=== PATIENT | male | born 1980 | race Caucasian/White ===

== ENCOUNTER 2022-12-02 08:17 | Outpatient (CLI) | payer OTHER, SELFPAY | END 2022-12-02 08:18 | disposition home or self-care (01) | PROVIDERS: PCP Family Medicine; Visit Provider Family Medicine | DX: Z12.5 Encounter for screening for malignant neoplasm of prostate (principal); Z13.6 Encounter for screening for cardiovascular disorders | CPT/HCPCS: 80053; 80061; 84153 ==

== ENCOUNTER 2024-04-13 11:30 | Emergency (ER) | payer OTHER, SELFPAY ==
[2024-04-13] VITALS (10 sets, daily range): BP systolic 135–141; BP diastolic 94–97; PULSE 57–70; RESP 16; TEMP 36.6; O2SAT 97–100; BMI 30.5
--- NOTE | 2024-04-13 11:51 | CRLHL7_ITS ---
For Patients: As a result of the Century Cures Act, medical imaging exams and procedure reports are released immediately into your electronic medical record. You may view this report before your referring provider. If you have questions, please contact your health care provider. INDICATION: Chest pain, shortness of breath COMPARISON: None. TECHNIQUE: PA and lateral 2 view chest. FINDINGS: Lung volumes are good. No focal or diffuse opacities. No pulmonary edema. No pleural effusion. No pneumothorax. No pneumomediastinum. Normal cardiomediastinal silhouette. Bones: Normal for age. IMPRESSION: Normal chest radiographs. Dictated by Chrissy Reid MD @ 04/13/2024 12:11:14 PM (Electronically Signed)
[2024-04-13 12:12] LABS: Basophils Absolute Auto 0.05 K/uL (0.00-0.30); Basophils Percent Auto 0.7 % (0.0-3.0); Eosinophils Absolute Auto 0.16 K/uL (0.00-0.50); Eosinophils Percent Auto 2.2 % (0.0-7.0); Hematocrit 42.9 % (37.0-53.0); Hemoglobin* 14.6 gm/dL (13.5-17.5); Immature Granulocytes Abs Auto 0.01 K/uL (0.00-0.30); Immature Granulocytes Pct Auto 0.1 %; Lymphocytes Absolute Auto 1.76 K/uL (0.90-2.90); Mean Corpuscular HGB Conc 34 gm/dL (32-36); Mean Corpuscular Hemoglobin 31 pg (26-34); Mean Corpuscular Volume 90 fL (80-100); Monocytes Percent Auto 6.9 % (0.0-11.0); Neutrophils Absolute Auto 4.85 K/uL (1.7-7.0); Neutrophils Percent Auto 66.1 % (42.0-72.0); Platelet Count* 196 K/uL (140-440); Red Blood Count 4.79 m/uL (4.30-5.90); White Blood Count* 7.34 K/uL (4.50-11.00)
--- NOTE | 2024-04-13 12:26 | ED_ITS ---
HPI - Chest Pain General Date Seen: 04/13/24 Chief Complaint: Chest Pain Stated Complaint: dizziness, chest pain Time Seen by Provider: 04/13/24 11:36 Source: patient Mode of arrival: ambulatory Limitations: no limitations History of Present Illness HPI narrative: Patient is a 43-year-old male presenting to the emergency department for episodes of lightheadedness, dizziness, shortness of breath. He states he 1st leave the final felt this symptoms last night after a volleyball game. Seems to come and go and returned again today. Is not currently having any chest pain or shortness of breath. States the lightheadedness is very mild at this time. Is also having some very mild nausea. Was concerned because he had a brother who at the age of 19 from sudden cardiac . Patient states he was thoroughly evaluated several years ago for multiple issues in the not find any abnormalities of his heart. And he last saw a cryptographic clerk 5 years ago for frequent PVCs and again no concerning findings were seen. He was concerned because of the family history so came in to be evaluated. Describes feeling lightheaded occasionally with chest discomfort midsternal a that is Jacqueline brought the nature but has improved significantly. Is unsure if the shortness of breath was due to anxiety or not. Denies headache, vision changes, dizziness weakness, numbness, diarrhea, constipation. Denies history of blood clots, hemoptysis, recent surgery or trauma, hormone use, lower extremity swelling. No other concerns noted Related Data Home Medications ?Medication ?Instructions ?Recorded ?Confirmed No Known Home Medications 04/13/24 04/13/24 Allergies Allergy/AdvReac Type Severity Reaction Status Date / Time Penicillins Allergy Severe Anaphylaxis Verified 04/13/24 11:41 Review of Systems Status of ROS Reports: 10 or more systems reviewed and unremarkable except as noted in History and below PFSH PFS Social History Smoking Status: Current some day smoker What tobacco products do you use: cigars How often do you have a drink containing alcohol: 2-3 times a week How many standard drinks containing alcohol do you have on a typical day: 1 or 2 AUDIT-C Alcohol total score: 3 Non-prescribed substance use: marijuana (any form) Exam Narrative Exam Narrative: Const: Well-nourished, Well-developed, in mild distress Eyes: PERRL, no conjunctival injection, and symmetrical lids HENT: Atraumatic external nose and ears. Moist mucous membranes. Neck: Symmetric, trachea midline, No thyromegaly. CVS: RRR, No murmurs or gallops. Peripheral pulses 2+ and equal in all extremities RESP: Unlabored respiratory effort. Clear to auscultation bilaterally. GI: Nontender/Nondistended, No rebound or guarding. MSK:Extremities w/o deformity, Normal Active ROM Skin: Warm, Dry. No rashes or lesions. Neuro: Normal Muscle tone, No focal neurological deficits. Psych: Awake, Alert, & Oriented x3. Appropriate mood and affect. Const Vital Signs, click to edit/add: Vital Signs - 24 hr 04/13/24 11:38 04/13/24 11:44 04/13/24 11:45 Temperature 97.9 F Pulse Rate 67 70 Pulse Rate [Pulse Oximeter] 65 Respiratory Rate 16 Blood Pressure [Right Upper Arm] 141/97 H Pulse Oximetry 99 97 99 Oxygen Delivery Method Room Air 04/13/24 12:03 04/13/24 12:15 04/13/24 12:30 Temperature Pulse Rate 63 64 67 Pulse Rate [Pulse Oximeter] Respiratory Rate Blood Pressure [Right Upper Arm] Pulse Oximetry 98 99 99 Oxygen Delivery Method Course Vital Signs Vital signs: Initial Vital Signs Temperature 97.9 F 04/13/24 11:38 Temperature Source Temporal Artery Scan 04/13/24 11:38 Pulse Rate 65 04/13/24 11:38 Respiratory Rate 16 04/13/24 11:38 Blood Pressure 141/97 H 04/13/24 11:38 Blood Pressure Mean 111 H 04/13/24 11:38 Blood Pressure Position Supine 04/13/24 11:38 Pulse Oximetry 99 04/13/24 11:38 Oxygen Delivery Method Room Air 04/13/24 11:38 Vital Signs Temperature 97.9 F 04/13/24 11:38 Pulse Rate 65 04/13/24 11:38 Respiratory Rate 16 04/13/24 11:38 Blood Pressure 141/97 H 04/13/24 11:38 Pulse Oximetry 99 04/13/24 11:38 Oxygen Delivery Method Room Air 04/13/24 11:38 Temperature 97.9 F 04/13/24 11:38 Pulse Rate 67 04/13/24 12:30 Respiratory Rate 16 04/13/24 11:38 Blood Pressure 141/97 H 04/13/24 11:38 Pulse Oximetry 99 04/13/24 12:30 Oxygen Delivery Method Room Air 04/13/24 11:38 MDM - Chest Pain MDM Narrative Medical decision making narrative: Patient is a 43-year-old male presenting for chest pain. The differential diagnosis of chest pain is broad and includes common etiologies such as musculoskeletal strain, GERD, pneumonia, etc. More serious etiologies considered include PE, coronary artery disease, pneumothorax, aortic dissection, aortic aneurysm. Will do chest x-ray to look for signs of pneumonia or pneumothorax. PERC negative so PE is unlikely. Will do an EKG to look for signs of ACS, Brugada, long QT syndrome. Troponin also ordered. This otherwise stable appearance aortic dissection and aortic aneurysm seem less likely. EKG reviewed myself shows no concerning abnormalities. Troponin is within normal limits. D-dimer within normal limits. CBC and CMP showed no concerning abnormalities. Viral swabs are negative. Chest x-ray reviewed by myself and the radiologist shows no concerning findings. At this time and not see acute concerning issues. Concerned symptoms started yesterday do not believe repeat troponin is necessary. I believe he is safe for discharge to him and his are agreeable to this plan. Lab Data Labs: Lab Results 04/13/24 04/13/24 Range/Units 12:04 12:06 WBC 7.34 (4.50-11.00) K/uL RBC 4.79 (4.30-5.90) m/uL Hgb 14.6 (13.5-17.5) gm/dL Hct 42.9 (37.0-53.0) % MCV 90 (80-100) fL MCH 31 (26-34) pg MCHC 34 (32-36) gm/dL RDW Coeff of Arnulfo 13.0 (11.5-15.5) % Plt Count 196 (140-440) K/uL Neut % (Auto) 66.1 (42.0-72.0) % Lymph % (Auto) 24.0 (20-44) % Estill % (Auto) 6.9 (0.0-11.0) % Eos % (Auto) 2.2 (0.0-7.0) % Baso % (Auto) 0.7 (0.0-3.0) % Neut # (Auto) 4.85 (1.7-7.0) K/uL Lymph # (Auto) 1.76 (0.90-2.90) K/uL Estill # (Auto) 0.50 (0.00-0.90) K/UL Eos # (Auto) 0.16 (0.00-0.50) K/uL Baso # (Auto) 0.05 (0.00-0.30) K/uL Abs Immat Gran (auto) 0.01 (0.00-0.30) K/uL Imm/Tot Granulo (auto) 0.1 % Sodium 139 (135-149) mmol/L Potassium 4.2 (3.6-5.1) mmol/L Chloride 106 (96-114) mmol/L Carbon Dioxide 25 (20-32) mmol/L Anion Gap 8 (7-15) mEq/L BUN 12 (5-24) mg/dL Creatinine 0.8 (0.5-1.5) mg/dL Estimated Creat Clear 133.38 Estimated GFR 114 ml/min Glucose 91 (60-115) mg/dL Calcium 9.1 (8.4-10.6) mg/dL Magnesium 2.3 (1.5-2.6) mg/dL Troponin I < 0.01 L (0.01-0.04) ng/mL SARS-CoV-2 (PCR) Negative SARS-CoV-2 (Negative) Influenza Type A (PCR) Negative PCR FLU A (Negative) Influenza Type B (PCR) Negative PCR FLU B (Negative) Imaging Data Chest x-ray: Attestation: I have reviewed the pertinent imaging results. Radiologist's impression: Normal chest radiographs. Dictated by Chrissy Reid MD @ 04/13/2024 12:11:14 PM ECG Data Attestation: I personally reviewed and interpreted this ECG as follows: Prior ECG tracings: not available for review Interpretation: Normal sinus rhythm with a rate of 62 beats per minute, normal intervals, normal axis, no ST or T-wave abnormalities. Discharge Plan Discharge Clinical Impression: Atypical chest pain, Episodic lightheadedness Patient Disposition: Home, Self-Care Condition: Stable Instructions: Lightheadedness (ED), Noncardiac Chest Pain (ED) Additional Instructions: I do not see any acute emergent issues on my workup. Cannot say for certain what is causing her symptoms but you should Follow-up with your primary care provider. Return for new worsening symptoms. Prescriptions: No Action No Known Home Medications Follow Up/Referrals: Provider,Not a Local [Primary Care Provider] - Stand Alone Forms: [email or web address] Info Instructions
[2024-04-13 12:31] LABS: Chloride* 106 mmol/L (96-114); Potassium* 4.2 mmol/L (3.6-5.1); Sodium* 139 mmol/L (135-149)
[2024-04-13 12:33] LABS: Slide Review Reflex No
[2024-04-13 12:34] LABS: Anion Gap 8 mEq/L (7-15); Blood Urea Nitrogen* 12 mg/dL (5-24); Calcium* 9.1 mg/dL (8.4-10.6); Carbon Dioxide* 25 mmol/L (20-32); Creatinine* 0.8 mg/dL (0.5-1.5); Est. Creatinine Clearance* 133.38; Estimated Glomerular Filt Rate 114 ml/min; Glucose* 91 mg/dL (60-115); Magnesium* 2.3 mg/dL (1.5-2.6)
[2024-04-13 12:48] LABS: Troponin I* < 0.01 ng/mL (0.01-0.04)
[2024-04-13 12:50] LABS: PCR FLU A Negative PCR FLU A (Negative); PCR FLU B Negative PCR FLU B (Negative); SARS PCR* Negative SARS-CoV-2 (Negative)
--- OUTSIDE RECORDS SUMMARY | 2024-04-13 12:58 | XMS_ITS | Encounter Summary ---
Author Organization [facility] Address [address] [place] [id number] Care Team Providers Care Clinic Office Assistant Name Role Phone Cayden Nunez MD Primary Care Provider [phone] Cayden Nunez MD Unavailable [phone] Tony Deal MD Unavailable Encounter Details Date Type Department Care Team (Late st Contact Info) Description 08/06/2023 MyC Medical Advice [facility] [address] [place] [phone] [place] [address] [place] [phone] Social History Tobacco Use Types Packs/Day Years Used Date Smoking Tobacco: Never Smokeless Tobacco: Never Alcohol Use Standard Drinks/Week Comments Yes 5 (1 standard drink = 0.6 oz pur e alcohol) social PHQ-2 Answer Date Recorded PHQ-2 Score 0 01/04/2023 Adolescent Education Answer Date Record ed Getting School Help Needed Not on file 01/28 Sex and Gender Information Value Date Recorded Sex Assigned at Not on file Legal Sex Male 10:56 AM CDT Gender Identity Not on file Sexual Orientation Not on file documented as of this encounter Plan of Treatment Upcoming Encounters Date Type Department Care Team (Late st Contact Info) Description 04/13/2024 3:00 PM PODIATRIC ASSISTANT Therapy Visit [facility] [address] [facility] [address] [place] [phone] [place] [phone] [place] [address] documented as of this encounter Visit Diagnoses Not on filedocumented in this encounter Additional Health Concerns Assessment Noted Time PHQ-9 Depression Total Score: 0 10/03/19 21 2:07 PM CDT documented as of this encounter Care Teams Clinic Office Assistant Relationship Specialty Start Date End Date Cayden Nunez MD [address] [place] [address] PCP - General 02/22/17 Cayden Nunez MD [address] [place] [address] Assigned PCP 11/21/20 Tony Deal MD [address] [place] [id number] Assigned Neuroscience Provider 03/31/24 documented as of this encounter
--- OUTSIDE RECORDS SUMMARY | 2024-04-13 12:58 | XMS_ITS | Encounter Summary ---
Author Organization [facility] Address [address] [place] [address] Care Team Providers Care Diploma Maker Name Role Phone Cayden Nunez MD Primary Care Provider [phone] Cayden Nunez MD Unavailable [phone] Reason for Referral * Rehab Therapy Physical Therapy (Routine: Next available opening) - Pending Review Specialty Diagnoses / Procedures Referred By Contac t Referred To Contact Diagnoses Chronic midline low back pain without sciatica Degeneration of intervertebral disc of lumbar region with discogenic back pain Tony Deal MD [address] [place] [id number] Phone: tel: fax: Referral ID Status Reason Start Date Expiration Date V isits Requested Visits Authorized [id number] Pending Review 03/13/2024 03/13/2025 1 1 Question Answer Course of Action: Evaluation and Treatment Specialty Services: [facility] Patient Scheduling Instructions: [facility] will call you to coordinate your care as prescribed by your provider. If you don't hear from a financial services representative within 2 business days, please call . Comments Please be aware that coverage of these services is subject to the terms and limitations of your health insurance plan. Call member services at your health plan with any benefit or coverage questions. [facility] will call you to coordinate your care as prescribed by your provider. If you don't hear from a financial services representative within 2 business days, please call . Y LEVEL STAFF ACCOUNTANT Reason for Visit * Reason Comments Back Pain lumbar * Consultation (Routine: Next available opening) - Pending Review Specialty Diagnoses / Procedures Referred By Contac t Referred To Contact Diagnoses Acute low back pain, unspecified back pain laterality, unspecified whether sciatica present Chronic midline low back pain without sciatica Cayden Nunez MD [facility] [place] [address] Phone: tel: fax: Referral ID Status Reason Start Date Expiration Date V isits Requested Visits Authorized [id number] Pending Review 02/08/2024 02/07/2025 1 1 Encounter Details Date Type Department Care Team (Late st Contact Info) Description 03/13/2024 11:00 AM ENTRY LEVEL STAFF ACCOUNTANT Office Visit [facility] Spine and Neurosurgery [address] [place] [phone] Cayden Nunez MD [address] [place] [phone] Tony Deal MD [address] [place] [address] [phone] Degeneration of intervertebral disc of lumbar region with discogenic back pain (Primary Dx); Acute low back pain, unspecified back pain laterality, unspecified whether sciatica present; Chronic midline low back pain without sciatica Social History Tobacco Use Types Packs/Day Years Used Date Smoking Tobacco: Never Smokeless Tobacco: Never Tobacco Cessation:Counseling Given: Not Answered Alcohol Use Standard Drinks/Week Comments Yes 5 (1 standard drink = 0.6 oz pur e alcohol) social PHQ-2 Answer Date Recorded PHQ-2 Score 0 03/13/2024 Adolescent Education Answer Date Record ed Getting School Help Needed Not on file 01/28 Sex and Gender Information Value Date Recorded Sex Assigned at Not on file Legal Sex Male 10:56 AM CDT Gender Identity Not on file Sexual Orientation Not on file documented as of this encounter Last Filed Vital Signs Vital Sign Reading Time Taken Comments Blood Pressure 132/79 03/13/2024 10:50 AM ENTRY LEVEL STAFF ACCOUNTANT Pulse 71 03/13/2024 10:50 AM ENTRY LEVEL STAFF ACCOUNTANT Temperature - - Respiratory Rate - - Oxygen Saturation 98% 03/13/2024 10:50 AM ENTRY LEVEL STAFF ACCOUNTANT Inhaled Oxygen Concentration - - Weight 102.1 kg (225 lb) 03/13/2024 10:50 AM ENTRY LEVEL STAFF ACCOUNTANT Height 185.4 cm (6' 1) 03/13/2024 10:50 AM ENTRY LEVEL STAFF ACCOUNTANT Body Mass Index 29.69 03/13/2024 10:50 AM ENTRY LEVEL STAFF ACCOUNTANT documented in this encounter Patient Instructions * Patient Instructions* Tony Deal MD - 03/13/2024 11:00 AM ENTRY LEVEL STAFF ACCOUNTANT ~Spine Center Scheduling # . ~Please call our [facility] Spine Nurse Navigation # with any questions or concerns about your treatment plan, if symptoms worsen and you would like to be seen urgently, or if youhave problems controlling bladder and bowel function. ~For any future flareups or new symptoms, recommend follow-up in clinic or contact the nurse navigator line. ~Please note that any My Chart messages may take multiple days for a response due to the high volume of patients seen in clinic. Anything sent Tuesday night or after will be answered the following week when able. Physical Therapy: We have placed a referral for you to start physical therapy. You should be receiving a call within the next 2-4 business days to schedule your first session. If you do not hear from the PT clinic within a week please call our clinic for assistance. Physical therapy is one of the most safe and effective treatments available for spine-related pain.Consistency is the most important factor when it comes to physical therapy - your therapist will give you exercises and stretches that you can perform at home, often without any special equipment. You should try to do those exercises at least once a day as long as they do not worsen your pain. Yourtherapist is trained to identify when your symptoms are worsening, but if you feel any new symptomsof numbness, weakness, or loss of bladder/bowel control please inform your therapist or call our clinic. We will plan to follow up with you once your therapy visits are completed. Y LEVEL STAFF ACCOUNTANT documented in this encounter Progress Notes * Sanjeev Sosa MD - 03/13/2024 11:00 AM CST Images from the original note were not included. ASSESSMENT: Pastor Norris is a 43 year old male presents for consultation at the request of Cayden Nunez who presents today for new patient evaluation of : Diagnoses and all orders for this visit: Degeneration of intervertebral disc of lumbar region with discogenic back pain - Physical Therapy Economics Professor Referral; Future Acute low back pain, unspecified back pain laterality, unspecified whether sciatica present - Spine Economics Professor Referral Chronic midline low back pain without sciatica - Spine Economics Professor Referral - Physical Therapy Economics Professor Referral; Future Patient is neurologically intact on exam. No myelopathic or red flag symptoms. Patient presenting with right axial lower lumbar pain for about 4 months. Pain is aggravated by sitting for prolonged periods. Symptoms had initially improved with Medrol dose pack but recurred. He did PT focused on stretching with minimal response. His exam shows tight hamstrings, SLR is negative.No recent image of the spine. Of note, he has a hx of L5-S1 diskectomy 13 years ago with residual chronic subjective diminished sensation in the right lateral lower leg. Differential diagnosis include discogenic pain (most likely) without radicular symptoms and myofascial pain. Discussed he would benefit from a more structured PT program ([facility]) focusing on the core muscle, especially the back extensors and he is willing to try. Discussed about optimizing medication management yet he wants to avoid stronger or additional medications at this time. PLAN: Reviewed spine anatomy and disease process. Discussed diagnosis and treatment options with the patient today. A shared decision making model was used. The patient's values and choices were respected.The following represents what was discussed and decided upon by the provider and the patient. 1. DIAGNOSTIC TESTS No new imaging orders at this time. Would consider a lumbar MRI with contrast (hx back surgery) if symptoms persist after PT. 2. PHYSICAL THERAPY Physical therapy was ordered through [facility] or the external clinic of patient's choice. [facility] therapy specified Discussed the importance of core strengthening, ROM, stretching exercises with the patient and how each of these entities is important in decreasing pain. Explained to the patient that the purpose ofphysical therapy is to teach the patient a home exercise program. These exercises need to be performed every day in order to decrease pain and prevent future occurrences of pain. Likened it to brushing one's teeth. 3. MEDICATIONS: Discussed multiple medication options today with patient. Discussed risks, side effects, and properuse of medications. Patient verbalized understanding. No new medications ordered at this visit. Patient advised to call our clinic's nurse navigation line (number provided) if they experience anyside effects or intolerances with prescribed medication. 4. INTERVENTIONS: Patient has not exhausted conservative measures yet, and we will follow up once conservative treatment has completed. 5. OTHER REFERRALS: No other referrals at this time. 6. FOLLOW-UP After completion of physical therapy. Patient advised to contact our office for earlier appointment if symptoms worsening or not improving, or any side effects are noticed. Advised patient to call the Spine Center if symptoms worsen or you have problems controlling bladder and bowel function. SUBJECTIVE: Pastor Norris is a 43 year old male who presents today for new patient evaluation due to low back pain for 4 months. Symptoms started in November, after he played softball. Did not have direct trauma to the spine. Located in the right lower lumbar region, does not radiate to the legs. Back in November the pain last for a few weeks and improved with Medrol dose pack and PT. Patient is now having similar symptoms for the past 1 month with no trauma. He is taking Medrol dose pack again with minimal response. He continues to do stretching exercises for the back and hamstrings. He is very active playing volleyball and softball regularly. Severity: 10/16 Laterality: right Radiation: no Worse with: Prolonged sitting Better with: Lying down Numbness: Chronic in the right lateral lower leg Weakness: no Prior back surgeries: hx of L5/S1 diskectomy 13 years ago -Treatment to Date: PT focusing on stretching and hamstring strengthening Oswestry (YULY) Questionnaire 11/29/2023 1:22 PM OSWESTRY DISABILITY INDEX Count 10 Sum 1 Oswestry Score (%) 2 % Neck Disability Index: No data to display -Medications: Current Outpatient Medications Medication Sig Dispense Refill cyclobenzaprine (FLEXERIL) 10 MG tablet Take 1 tablet (10 mg) by mouth 3 times daily as needed for muscle spasms. 30 tablet 4 diclofenac (VOLTAREN) 75 MG EC tablet Take 1 tablet (75 mg) by mouth 2 times daily as needed for moderate pain. (Patient not taking: Reported on 03/13/2024) 30 tablet 0 methylPREDNISolone (MEDROL DOSEPAK) 4 MG tablet therapy pack Follow Package Directions (Patient nottaking: Reported on 03/13/2024) 21 tablet 0 No current facility-administered medications for this visit. Allergies Allergen Reactions Penicillins shock Past Medical History: Diagnosis Date Asthma no symptoms since the Lumbar disc herniation PVC's (premature ventricular contractions) RBBB (right bundle branch block) Rotator cuff syndrome Patient Active Problem List Diagnosis PVC's (premature ventricular contractions) Chronic midline low back pain without sciatica Past Surgical History: Procedure Laterality Date APPENDECTOMY 05/09/1990 C ARTHROSCOPIC BANKART REPAIR Left 05/09/1997 DISCECTOMY LUMBAR MINIMALLY INVASIVE ONE LEVEL 05/09/2009 L5-S1 microdiscectomy Family History Problem Relation Age of Onset Depression Mother Diabetes Father Obesity Father Cardiovascular Brother 20 sudden cardiac , autopsy inconclusive No Known Problems Brother Glaucoma Maternal Grandmother Dementia Maternal Grandfather No Known Problems Son No Known Problems Son delayed speech, poor feeding (tub feedings) Cancer - colorectal No family hx of Prostate Cancer No family hx of Reviewed past medical, surgical, and family history with patient found on new patient intake packetlocated in EMR Media tab. SOCIAL HX: Reviewed ROS: Specifically negative for bowel/bladder dysfunction, balance changes, headache, dizziness, foot drop, fevers, chills, appetite changes, nausea/vomiting, unexplained weight loss. Otherwise 13 systems reviewed are negative. Please see the patient's intake questionnaire from today for details. OBJECTIVE: BP 132/79 (BP Location: Right arm, Patient Position: Sitting, Cuff Size: Adult Regular) Pulse 71 Ht 6' 1 (1.854 m) Wt 225 lb (102.1 kg) SpO2 98% BMI 29.69 kg/m?? PHYSICAL EXAMINATION: --CONSTITUTIONAL: Vital signs as above. No acute distress. The patient is well nourished and well groomed. --PSYCHIATRIC: The patient is awake, alert, oriented to person, place, time and answering questionsappropriately with clear speech. Appropriate mood and affect --RESPIRATORY: Normal rhythm and effort. No abnormal accessory muscle breathing patterns noted. --GROSS MOTOR: Easily arises from a seated position. --LUMBAR SPINE: Inspection reveals no evidence of deformity. Range of motion is not limited in flexion, extension, lateral rotation. Mild tenderness to palpation of right lower lumbar paraspinals, notenderness in spinous processes or SIJ. Facet loading (Lyons test) negative, SLR negative. --HIPS: Full range of motion bilaterally. Negative KARLA test. --LOWER EXTREMITY MOTOR TESTING: Hip flexion left 5/5, right 5/5 Knee extension left 5/5, right 5/5 Ankle dorsiflexors left 5/5, right 5/5 Ankle plantarflexors left 5/5, right 5/5 Great toe extension left 5/5, right 5/5 Knee flexion left 5/5, right 5/5 --NEUROLOGIC: Sensation to lower extremities is intact bilaterally in L2-S1 dermatomes. Reflexes intact in BLE, no clonus. --VASCULAR: Warm upper limbs bilaterally. Capillary refill in the upper extremities is less than 1 second. RESULTS: Available medical records from [facility] and any other outside records were reviewed today. Imaging: Available relevant imaging was personally reviewed and interpreted today. The images were shown to the patient and the findings were explained using a spine model. No results found. Cosigned by Tony Deal MD at 03/13/2024 1:08 PM ENTRY LEVEL STAFF ACCOUNTANT Y LEVEL STAFF ACCOUNTANT Associated attestation - Tony Deal MD - 03/13/2024 1:08 PM ENTRY LEVEL STAFF ACCOUNTANT Physician Attestation I, Tony Deal MD, saw and evaluated this patient and agree with the findings and plan of care as documented in the note. Any changes have been made above. Tony Deal MD [facility] documented in this encounter Plan of Treatment Upcoming Encounters Date Type Department Care Team (Late st Contact Info) Description 04/13/2024 3:00 PM ENTRY LEVEL STAFF ACCOUNTANT Therapy Visit [facility] [address] [address] [place] [id number] [place]uñ[place] [id number] [place] [address] Scheduled Referrals Name Type Priority Associated Diagnoses Orde r Schedule Physical Therapy Economics Professor Referral Referral Routine: Next available opening Chronic midline low back pain without sciatica Degeneration of intervertebral disc of lumbar region with discogenic back pain Expected: 03/13/2024 (Approximate), Expires: 03/13/2025 documented as of this encounter Visit Diagnoses Diagnosis Degeneration of intervertebral disc of lumbar region with discogenic back pain- Primary Acute low back pain, unspecified back pain laterality, unspecified whether sciatica present Chronic midline low back pain without sciatica documented in this encounter Additional Health Concerns Assessment Noted Time PHQ-9 Depression Total Score: 0 10/03/19 21 2:07 PM CDT documented as of this encounter Care Teams Diploma Maker Relationship Specialty Start Date End Date Cayden Nunez MD [address] [place] [address] PCP - General 02/22/17 Cayden Nunez MD [address] [place] [address] Assigned PCP 11/21/20 documented as of this encounter
--- OUTSIDE RECORDS SUMMARY | 2024-04-13 12:58 | XMS_ITS | Clinical Summary ---
Author Organization [facility] Address [address] [place] [address] Care Team Providers Care Sand Mixer Machine Name Role Phone Cayden Nunez MD Primary Care Provider [phone] Cayden Nunez MD Unavailable [phone] Tony Deal MD Unavailable Allergies Active Allergy Reactions Criticality Noted Date Comments Penicillins 03/07/2014 shock Medications methylPREDNISolo ne (MEDROL DOSEPAK) 4 MG tablet therapy packIndications: Acute low back pain, unspecified back pain laterality, unspecified whether sciatica present Follow Package Directions 21 tablet 4 Active Additional Information Patient not taking.Reported on 03/13/2024 cyclobenzaprine (FLEXERIL) 10 MG tabletIndication s:Chronic midline low back pain without sciatica Take 1 tablet (10 mg) by mouth 3 times daily as needed for muscle spasms. 30 tablet 4 4 Active diclofenac (VOLTAREN) 75 MG EC tabletIndication s:Acute low back pain, unspecified back pain laterality, unspecified whether sciatica present Take 1 tablet (75 mg) by mouth 2 times daily as needed for moderate pain. 30 tablet 4 Active Additional Information Patient not taking.Reported on 03/13/2024 Active Problems Problem Noted Date Diagnosed Date Chronic midline low back pain without sciatica 0 11/29/2023 PVC's (premature ventricular contractions) 04/20 Overview (11/07/2020): 04/06/2017 Holter 284 (0.3% heartbeats) associated with symptoms of palpitations Encounters Date Type Department Care Team Description 03/13/2024 11:00 AM ROUSTABOUT CREW Office Visit [facility] [address] [facility] [address] [place] [address] Cayden Nunez MD Joshi, Mihir, MD Degeneration of intervertebral disc of lumbar region with discogenic back pain (Primary Dx); Acute low back pain, unspecified back pain laterality, unspecified whether sciatica present; Chronic midline low back pain without sciatica 03/13/2024 Travel 02/07/2024 1:00 PM CDT E-Visit [address] [address] Cayden Nunez MD Back Pain (Entered automatically based on ... from Last 3 Months Immunizations Name Administration Dates Next Due Flu, Unspecified 02/16/2023,02/09/2019, 8 Influenza (IIV3) PF 02/20/2014 Influenza Vaccine >6 months,quad, PF 01/21/2021, 02/15/2019,02/08/2017 Influenza,INJ,MDCK,PF,Quad >6mo(Flucelvax) 02/19 TDAP (Adacel,Boostrix) 11/07/2011 Typhoid IM 05/05/2021 Yellow Fever 05/05/2021 Family History Medical History Relation Comments Cardiovascular Brother 1 sudden cardiac d eath, autopsy inconclusive No Known Problems Brother 2 Diabetes Father Obesity Father Dementia Maternal Grandfather Glaucoma Maternal Grandmother Depression Mother No Known Problems Son 1 No Known Problems Son 2 delayed speech , poor feeding (tub feedings) Cancer - colorectal No family hx of Prostate Cancer No family hx of Relation Status Comments Brother 1 Brother 2 Alive Father Alive Maternal Grandfather Maternal Grandmother Alive Mother Alive Paternal Grandfather Paternal Grandmother Son 1 Alive Son 2 Alive Social History Tobacco Use Types Packs/Day Years [...] on file Sexual Orientation Not on file Last Filed Vital Signs Vital Sign Reading Time Taken Comments Blood Pressure 132/79 03/13/2024 10:50 AM ROUSTABOUT CREW Pulse 71 03/13/2024 10:50 AM ROUSTABOUT CREW Temperature 36.6 C (97.9 F) 01/04/2023 11:46 AM CDT Respiratory Rate 20 01/04/2023 11:46 AM CDT Oxygen Saturation 98% 03/13/2024 10:50 AM ROUSTABOUT CREW Inhaled Oxygen Concentration - - Weight 102.1 kg (225 lb) 03/13/2024 10:50 AM ROUSTABOUT CREW Height 185.4 cm (6' 1) 03/13/2024 10:50 AM ROUSTABOUT CREW Body Mass Index 29.69 03/13/2024 10:50 AM ROUSTABOUT CREW Plan of Treatment Upcoming Encounters Date Type Department Care Team (Late st Contact Info) Description 04/13/2024 3:00 PM ROUSTABOUT CREW Therapy Visit [facility] [address] [facility] [address] [place] [phone] Freddy Zuñ[place] [address] [place] [address] Health Maintenance Due Date Last Done Comments ADVANCE CARE PLANNING 1982 HEPATITIS B IMMUNIZATION (1 of 3 - 19+ 3-dose series) 2001 ANNUAL REVIEW OF HM ORDERS 01/05/2024 01/04/2023, YEARLY PREVENTIVE VISIT 01/05/2024 01/05/20 23, 01/21/2021, 01/04/2019, Additional history exists GLUCOSE 04/17/2024 04/17/2021, 01/07, 03/07/2014 LIPID 01/21/2026 01/21/2021, 09/2018, 01/04/2019, Additional history exists DTAP/TDAP/TD IMMUNIZATION (3 - Td or Tdap) 02/03/2027 02/03/2017, 11/07/2011 RSV VACCINE (1 - 1-dose 75+ series) 2057 COVID-19 Vaccine Completed 03/03/2024, , 03/03/2021, Additional history exists INFLUENZA VACCINE Completed 03/03/2024, , 02/19/2022, Additional history exists PHQ-2 (once per calendar year) Completed 03/13/2024, 01/04/2023, 01/21/2021, Additional history exists HEPATITIS C SCREENING Discontinued HIV SCREENING Discontinued HPV IMMUNIZATION Aged Out No longer e ligible based on patient's age to complete this topic MENINGITIS IMMUNIZATION Aged Out No l onger eligible based on patient's age to complete this topic Pneumococcal Vaccine: Pediatrics (0 to 5 Years) and At-Risk Patients (6 to 64 Years) Aged Out No longer eligible based on patient's age to complete this topic RSV MONOCLONAL ANTIBODY Aged Out No l onger eligible based on patient's age to complete this topic Procedures Procedure Name Priority Date/Time Associated Diagnosis Comments COMPREHENSIVE METABOLIC PANEL Routine 04/17/2021 10:31 AM ROUSTABOUT CREW Abdominal pain, epigastric Abdominal bloating Early satiety LIPID REFLEX TO DIRECT LDL PANEL Routine 01/21/2021 12:32 PM CDT Mixed hyperlipidemia from Last 3 Months or Most Recently Relevant to Health Maintenance Results * Comprehensive metabolic panel (04/17/2021 10:31 AM ROUSTABOUT CREW) Sodium 139 133 - 144 mmol/L 04/20/2021 8:58 AM ROUSTABOUT CREW [facility] Potassium 4.3 3.4 - 5.3 mmol/L 04/20/2021 8:58 AM ROUSTABOUT CREW [facility] Chloride 109 94 - 109 mmol/L 04/20/2021 8:58 AM ROUSTABOUT CREW [facility] Carbon Dioxide (CO2) 25 20 - 32 mmol/L 04/20/2021 8:58 AM ROUSTABOUT CREW [facility] Anion Gap 5 3 - 14 mmol/L 04/20/2021 8:58 AM ROUSTABOUT CREW [facility] Urea Nitrogen 11 7 - 30 mg/dL 04/20/2021 8:58 AM ROUSTABOUT CREW [facility] Creatinine 0.85 0.66 - 1.25 mg/dL 04/20/2021 8:58 AM ROUSTABOUT CREW [facility] Calcium 8.6 8.5 - 10.1 mg/dL 04/20/2021 8:58 AM ROUSTABOUT CREW [facility] Glucose 81 70 - 99 mg/dL 04/20/2021 8:58 AM ROUSTABOUT CREW [facility] Alkaline Phosphatase 69 40 - 150 U/L 04/20/2021 8:58 AM ROUSTABOUT CREW [facility] AST 17 0 - 45 U/L 04/20/2021 8:58 AM ROUSTABOUT CREW [facility] ALT 33 0 - 70 U/L 04/20/2021 8:58 AM ROUSTABOUT CREW [facility] Protein Total 7.3 6.8 - 8.8 g/dL 04/20/2021 8:58 AM ROUSTABOUT CREW [facility] Albumin 3.6 3.4 - 5.0 g/dL 04/20/2021 8:58 AM ROUSTABOUT CREW [facility] Bilirubin Total 0.4 0.2 - 1.3 mg/dL 04/20/2021 8:58 AM ROUSTABOUT CREW [facility] GFR Estimate >90 >60 mL/min/1.7 3m2 04/20/2021 8:58 AM ROUSTABOUT CREW [facility] Comment:As of November 16, 2020, eGFR is calculated by the CKD-EPI creatinine equation, without race adjustment. eGFR can be influenced by muscle mass, exercise, and diet. The reported eGFR is an estimation only and is only applicable if the renal function is stable. Blood STRUCTURE OF RIGHT UPPER LIMB / Unknown Venipuncture / Unknown 04/17/2021 10:31 AM ROUSTABOUT CREW 04/17/2021 10:31 AM ROUSTABOUT CREW us Cayden Nunez MD LAB - BLOOD ORDERABLES Final R esult [facility] [address] Lab (no room number, 1st floor of clinic) [place] [address], [place] [phone] * (ABNORMAL) Lipid panel reflex to direct LDL Fasting (01/21/2021 12:32 PM CDT) Cholesterol 251(H) <=199 mg/dL 01/21/2021 6:43 PM CDT [facility] Triglycerides 120 <=149 mg/dL 01/21/2021 6:43 PM CDT [facility] Direct Measure HDL 43 >=40 mg/dL 01/21/2021 6:43 PM CDT [facility] Comment: HDL Cholesterol Reference Range: 0-2 years: No reference ranges established for patients under 2 years old at [facility] for lipid analytes. 2-8 years: Greater than 45 mg/dL 18 years and older: Female: Greater than or equal to 50 mg/dL Male: Greater than or equal to 40 mg/dL LDL Cholesterol Calculated 184(H) <=129 mg/dL 01/21/2021 6:43 PM CDT [facility] Patient Fasting > 8hrs? Yes 01/21/2021 6:43 PM CDT [facility] Blood STRUCTURE OF LEFT UPPER LIMB / Unknown Venipuncture / Unknown 01/21/2021 12:32 PM CDT 01/21/2021 12:32 PM CDT Cayden Nunez MD LAB - BLOOD ORDERABLES Final R esult Performing Organization Address City/State/[facility] Co de Phone Number [facility] [address] [id number] [phone] from Last 3 Months or Most Recently Relevant to Health [place] [address] [facility] CHOICE [address] [address] [facility] CHOICE Care Teams Sand Mixer Machine Relationship Specialty Start Date End Date Cayden Nunez MD [address] [place] [address] PCP - General 02/22/17 Cayden Nunez MD [address] [place] [address] Assigned PCP 11/21/20 Tony Deal MD [facility] [address] Assigned Neuroscience Provider 03/31/24
--- OUTSIDE RECORDS SUMMARY | 2024-04-13 12:58 | XMS_ITS | Referral Summary ---
Author Organization [facility] Address [address] [place] [address] Care Team Providers Care Drafter (Cad) Electronic Name Role Phone Cayden Nunez MD Primary Care Provider [phone] Cayden Nunez MD Unavailable [phone] Tony Deal MD Unavailable Encounters Date Type Department Care Team Description 03/13/2024 Travel 03/13/2024 11:00 AM AIR BRAKE OPERATOR Office Visit [facility] Spine and Neurosurgery [address] [place] [phone] Cayden Nunez MD Joshi, Mihir, MD Degeneration of intervertebral disc of lumbar region with discogenic back pain (Primary Dx); Acute low back pain, unspecified back pain laterality, unspecified whether sciatica present; Chronic midline low back pain without sciatica 02/07/2024 1:00 PM CDT E-Visit [address] [address] Cayden Nunez MD Back Pain (Entered automatically based on ... from Last 3 Months Allergies Active Allergy Reactions Criticality Noted Date Comments Penicillins 03/07/2014 shock Medications methylPREDNISolo ne (MEDROL DOSEPAK) 4 MG tablet therapy packIndications: Acute low back pain, unspecified back pain laterality, unspecified whether sciatica present Follow Package Directions 21 tablet Active Additional Information Patient not taking.Reported on 03/13/2024 cyclobenzaprine (FLEXERIL) 10 MG tabletIndication s:Chronic midline low back pain without sciatica Take 1 tablet (10 mg) by mouth 3 times daily as needed for muscle spasms. 30 tablet 4 Active diclofenac (VOLTAREN) 75 MG EC [...] (0.3% heartbeats) associated with symptoms of palpitations Immunizations Name Administration Dates Next Due Flu, Unspecified 02/16/2023,02/09/2019, 8 Influenza (IIV3) PF 02/20/2014 Influenza Vaccine >6 months,quad, PF 01/21/2021, 02/15/2019,02/08/2017 Influenza,INJ,MDCK,PF,Quad >6mo(Flucelvax) 02/19 TDAP (Adacel,Boostrix) 11/07/2011 Typhoid IM 05/05/2021 Yellow Fever 05/05/2021 Social History Tobacco Use Types Packs/Day Years [...] Comments Blood Pressure 132/79 03/13/2024 10:50 AM AIR BRAKE OPERATOR Pulse 71 03/13/2024 10:50 AM AIR BRAKE OPERATOR Temperature 36.6 C (97.9 F) 01/04/2023 11:46 AM CDT Respiratory Rate 20 01/04/2023 11:46 AM CDT Oxygen Saturation 98% 03/13/2024 10:50 AM AIR BRAKE OPERATOR Inhaled Oxygen Concentration - - Weight 102.1 kg (225 lb) 03/13/2024 10:50 AM AIR BRAKE OPERATOR Height 185.4 cm (6' 1) 03/13/2024 10:50 AM AIR BRAKE OPERATOR Body Mass Index 29.69 03/13/2024 10:50 AM AIR BRAKE OPERATOR Plan of Treatment Upcoming Encounters Date Type Department Care Team (Late st Contact Info) Description 04/13/2024 3:00 PM AIR BRAKE OPERATOR Therapy Visit [facility] [address] [facility] [address] [place] [phone] Freddy [place]uñ[place] [address] [address] [place] [address] Procedures Procedure Name Priority Date/Time Associated Diagnosis Comments COMPREHENSIVE METABOLIC PANEL Routine 04/17/2021 10:31 AM AIR BRAKE OPERATOR Abdominal pain, epigastric Abdominal bloating Early satiety LIPID REFLEX TO DIRECT LDL PANEL Routine 01/21/2021 12:32 PM CDT Mixed hyperlipidemia from Last 3 Months or Most Recently Relevant to Health Maintenance Results * Comprehensive metabolic panel (04/17/2021 10:31 AM AIR BRAKE OPERATOR) Sodium 139 133 - 144 mmol/L 04/20/2021 8:58 AM AIR BRAKE OPERATOR [facility] Potassium 4.3 3.4 - 5.3 mmol/L 04/20/2021 8:58 AM AIR BRAKE OPERATOR [facility] Chloride 109 94 - 109 mmol/L 04/20/2021 8:58 AM AIR BRAKE OPERATOR [facility] Carbon Dioxide (CO2) 25 20 - 32 mmol/L 04/20/2021 8:58 AM AIR BRAKE OPERATOR [facility] Anion Gap 5 3 - 14 mmol/L 04/20/2021 8:58 AM AIR BRAKE OPERATOR [facility] Urea Nitrogen 11 7 - 30 mg/dL 04/20/2021 8:58 AM AIR BRAKE OPERATOR [facility] Creatinine 0.85 0.66 - 1.25 mg/dL 04/20/2021 8:58 AM AIR BRAKE OPERATOR [facility] Calcium 8.6 8.5 - 10.1 mg/dL 04/20/2021 8:58 AM AIR BRAKE OPERATOR [facility] Glucose 81 70 - 99 mg/dL 04/20/2021 8:58 AM AIR BRAKE OPERATOR [facility] Alkaline Phosphatase 69 40 - 150 U/L 04/20/2021 8:58 AM AIR BRAKE OPERATOR [facility] AST 17 0 - 45 U/L 04/20/2021 8:58 AM AIR BRAKE OPERATOR [facility] ALT 33 0 - 70 U/L 04/20/2021 8:58 AM AIR BRAKE OPERATOR [facility] Protein Total 7.3 6.8 - 8.8 g/dL 04/20/2021 8:58 AM AIR BRAKE OPERATOR [facility] Albumin 3.6 3.4 - 5.0 g/dL 04/20/2021 8:58 AM AIR BRAKE OPERATOR [facility] Bilirubin Total 0.4 0.2 - 1.3 mg/dL 04/20/2021 8:58 AM AIR BRAKE OPERATOR [facility] GFR Estimate >90 >60 mL/min/1.7 3m2 04/20/2021 8:58 AM AIR BRAKE OPERATOR [facility] Comment:As of November 16, 2020, eGFR is calculated by the CKD-EPI creatinine equation, without race adjustment. eGFR can be influenced by muscle mass, exercise, and diet. The reported eGFR is an estimation only and is only applicable if the renal function is stable. Blood STRUCTURE OF RIGHT UPPER LIMB / Unknown Venipuncture / Unknown 04/17/2021 10:31 AM AIR BRAKE OPERATOR 04/17/2021 10:31 AM AIR BRAKE OPERATOR us Cayden Nunez MD LAB - BLOOD ORDERABLES Final R esult [facility] [address] Lab (no room number, 1st floor of clinic) [place] [address], [facility] [phone] * (ABNORMAL) Lipid panel reflex to direct LDL Fasting (01/21/2021 12:32 PM CDT) Cholesterol 251(H) <=199 mg/dL 01/21/2021 6:43 PM CDT [facility] Triglycerides 120 <=149 mg/dL 01/21/2021 6:43 PM CDT [facility] Direct Measure HDL 43 >=40 mg/dL 01/21/2021 6:43 PM CDT [facility] Comment: HDL Cholesterol Reference Range: 0-2 years: No reference ranges established for patients under 2 years old at [facility] for lipid analytes. 2-8 years: Greater [...] ORDERABLES Final R esult Performing Organization Address City/State/[facility] Co de Phone Number [facility] [address] [address] [phone] from Last 3 Months or Most Recently Relevant to Health Maintenance Insurance [facility] CHO[facility] [place] [id number] [facility] Care Teams Drafter (Cad) Electronic Relationship Specialty Start Date End Date Cayden Nunez MD [address] [place] [address] PCP - General 02/22/17 Cayden Nunez MD [address] [place] [address] Assigned PCP 11/21/20 Tony Deal MD [address] [place] [address] Assigned Neuroscience Provider 03/31/24
--- OUTSIDE RECORDS SUMMARY | 2024-04-13 12:58 | XMS_ITS | Encounter Summary ---
Author Organization [facility] Address [address] [place] [address] Care Team Providers Care Notch Grinder Name Role Phone Cayden Jerry MD Primary Care Provider [phone] Cayden Jerry MD Unavailable [phone] Reason for Referral * Consultation (Routine: Next available opening) - Pending Review Specialty Diagnoses / Procedures Referred By Contac t Referred To Contact Diagnoses Acute low back pain, unspecified back pain laterality, unspecified whether sciatica present Chronic midline low back pain without sciatica Cayden Jerry MD [address] [place] [address] Phone: tel: fax: Referral ID Status Reason Start Date Expiration Date V isits Requested Visits Authorized [id number] Pending Review 02/08/2024 02/07/2025 1 1 Question Answer Referral Type: Per Protocol Scheduling Instructions: [facility] will call you to coordinate your care as prescribed by your provider. If you don't hear from a players club representative within 2 business days, please call . Comments Please be aware that coverage of these services is subject to the terms and limitations of your health insurance plan. Call member services at your health plan with any benefit or coverage questions. [facility] will call you to coordinate your care as prescribed by your provider. If you don't hear from a players club representative within 2 business days, please call . Reason for Visit * Reason Onset Date Comments Back Pain Entered automati almita based on patient selection in [facility]. Back Pain 02/08/2024 Encounter Details Date Type Department Care Team (Late st Contact Info) Description 02/07/2024 1:00 PM CDT E-Visit [facility] [address] [place] [address] aCyden Jerry MD [address] [place] [address] Back Pain (Entered automatically based on ... Social History Tobacco Use Types Packs/Day Years [...] on file documented as of this encounter Patient Instructions * Patient Instructions* Cayden Jerry MD - 02/07/2024 1:00 PM CDT I have sent in diclofenac. This is a more potent NSAID than ibuprofen. If you use diclofenac, then do not use ibuprofen at the same time. You can use acetaminophen along with diclofenac. I sent in a Medrol Dosepak and muscle relaxant. I would like you to be seen in our spine clinic as a next step before an MRI. I placed a referral and someone should contact you to schedule documented in this encounter Miscellaneous Notes * Telephone Encounter - Cayden Jerry MD - 02/08/2024 9:48 AM CDT Provider E-Visit time total (minutes): 3 * Addendum Note - Cayden Jerry MD - 02/07/2024 1:00 PM CDTAddended by: CAYDEN JERRY on: 02/10/2024 02:02 PM Modules accepted: Orders documented in this encounter Plan of Treatment Upcoming Encounters Date Type Department Care Team (Late st Contact Info) Description 04/13/2024 3:00 PM CHIEF TECHNOLOGY OFFICER Therapy Visit [facility] [address] [facility] [address] [place] [address] Freddy Zuñ[place] [address] [place] [address] Scheduled Referrals Name Type Priority Associated Diagnoses Orde r Schedule Spine Main Line Station Engineer Referral Referral Routine: Next available opening Acute low back pain, unspecified back pain laterality, unspecified whether sciatica present Chronic midline low back pain without sciatica Expected: 02/08/2024 (Approximate), Expires: 02/07/2025 documented as of this encounter Visit Diagnoses Diagnosis Acute low back pain, unspecified back pain laterality, unspecified whether sciatica present Chronic midline low back pain without sciatica documented in this encounter Additional Health Concerns Assessment Noted Time PHQ-9 Depression Total Score: 0 10/03/19 21 2:07 PM CDT documented as of this encounter Care Teams Notch Grinder Relationship Specialty Start Date End Date Cayden Jerry MD [address] [place] [address] PCP - General 02/22/17 Cayden Jerry MD [address] [place] [address] Assigned PCP 11/21/20 documented as of this encounter
--- OUTSIDE RECORDS SUMMARY | 2024-04-13 12:58 | XMS_ITS | Encounter Summary ---
Author Organization [facility] Address [address] [place] [address] Care Team Providers Care Carrot Tier Name Role Phone Cayden Nunez MD Primary Care Provider [phone] Cayden Nunez MD Unavailable [phone] Tony Deal MD Unavailable Reason for Visit * Reason Onset Date Comments Appointment 06/27/2023 Encounter Details Date Type Department Care Team (Late st Contact Info) Description 06/27/2023 [facility] [address] 4th [place] [address] Unknown, Doctor, MD Appointment (/) Social History Tobacco Use Types Packs/Day Years [...] on file documented as of this encounter Miscellaneous Notes * Telephone Encounter - Jessy Pagan - 06/27/2023 4:51 PM [facility] Phone Message May a detailed message be left on voicemail: no Reason for Call: Appointment Intake Referring Provider Name: Laura Maher MD Diagnosis and/or Symptoms: R59.0 (ICD-10-CM) - Left cervical lymphadenopathy Sending to [facility] office per protocols Action Taken: Other: ENT Travel Screening: Not Applicable AINABILITY MANAGER documented in this encounter Plan of Treatment Upcoming Encounters Date Type Department Care Team (Late st Contact Info) Description 04/13/2024 3:00 PM SUSTAINABILITY MANAGER Therapy Visit [facility] [address] [facility] [address] [place] [address] Freddy Zuñ[place] [address] [place] [address] documented as of this encounter Visit Diagnoses Not on filedocumented in this encounter Additional Health Concerns Assessment Noted Time PHQ-9 Depression Total Score: 0 10/03/19 21 2:07 PM CDT documented as of this encounter Care Teams Carrot Tier Relationship Specialty Start Date End Date Cayden Nunez MD [address] [place] [address] PCP - General 02/22/17 [place] [address] [place] [address] Assigned PCP 11/21/20 Tony Deal MD [address] [address] Assigned Neuroscience Provider 03/31/24 documented as of this encounter
--- OUTSIDE RECORDS SUMMARY | 2024-04-13 12:58 | XMS_ITS | Encounter Summary ---
Author Organization [facility] Address [address] [place] [address] Care Team Providers Care Home Decorator Name Role Phone Cayden Nunez MD Primary Care Provider [phone] Cayden Nunez MD Unavailable [phone] Encounter Details Date Type Department Care Team (Latest Contact Info) Description 03/13/2024 Travel Social History Tobacco Use Types Packs/Day Years [...] st Contact Info) Description 04/13/2024 3:00 PM CPA TAX Therapy Visit [facility] [address] [facility] [address] [place] [phone] Freddy Zuñ[place] [address] [place] [address] documented as of this encounter Visit Diagnoses Not on filedocumented in this encounter Additional Health Concerns Assessment Noted Time PHQ-9 Depression Total Score: 0 10/03/19 21 2:07 PM CDT documented as of this encounter Care Teams Home Decorator Relationship Specialty Start Date End Date Cayden Nunez MD [address] [place] [address] PCP - General 02/22/17 Cayden Nunez MD [address] [place] [address] Assigned PCP 11/21/20 documented as of this encounter
--- OUTSIDE RECORDS SUMMARY | 2024-04-13 12:58 | XMS_ITS | Encounter Summary ---
Author Organization [employer] Address [address] [place] [address] Care Team Providers Care Seed Analysis Laboratory Assistant Name Role Phone Cayden Nunez MD Primary Care Provider [phone] Cayden Nunez MD Unavailable [phone] Tony Deal MD Unavailable Encounter Details Date Type Department Care Team (Late st Contact Info) Description 07/24/2023 MyC Medical Advice [facility] [address] [place] [phone] [place] [address] [place] [address] [phone] Social History Tobacco Use Types Packs/Day Years [...] st Contact Info) Description 04/13/2024 3:00 PM POLICE LIEUTENANT Therapy Visit [facility] [address] [facility] [address] [place] [phone] Freddy Zuñ[place] [address] [place] [address] documented as of this encounter Visit Diagnoses Not on filedocumented in this encounter Additional Health Concerns Assessment Noted Time PHQ-9 Depression Total Score: 0 10/03/19 21 2:07 PM CDT documented as of this encounter Care Teams Seed Analysis Laboratory Assistant Relationship Specialty Start Date End Date Cayden Nunez MD [address] [place] [address] PCP - General 02/22/17 Cayden Nunez MD [address] [place] [address] Assigned PCP 11/21/20 Tony Deal MD [address] [place] [address] Assigned Neuroscience Provider 03/31/24 documented as of this encounter
--- OUTSIDE RECORDS SUMMARY | 2024-04-13 12:59 | XMS_ITS | Encounter Summary ---
Author Organization [employer] Address [address] [place] [address] Care Team Providers Care Assistance Representative Name Role Phone Cayden Nunez MD Primary Care Provider [phone] Cayden Nunez MD Unavailable [phone] Tony Deal MD Unavailable Encounter Details Date Type Department Care Team (Late st Contact Info) Description 06/24/2023 MyC Medical Advice Initial Department Hamzah Menezes Social History Tobacco Use Types Packs/Day Years [...] st Contact Info) Description 04/13/2024 3:00 PM BILINGUAL SALES ASSISTANT Therapy Visit [facility] [address] [place] [address] Freddy Zuñ[place] [address] [place] [address] documented as of this encounter Visit Diagnoses Not on filedocumented in this encounter Additional Health Concerns Assessment Noted Time PHQ-9 Depression Total Score: 0 10/03/19 21 2:07 PM CDT documented as of this encounter Care Teams Assistance Representative Relationship Specialty Start Date End Date Cayden Nunez MD [address] [place] [address] PCP - General 02/22/17 Cayden Nunez MD [address] [place] [address] Assigned PCP 11/21/20 Tony Deal MD [address] [place] [address] Assigned Neuroscience Provider 03/31/24 documented as of this encounter
--- OUTSIDE RECORDS SUMMARY | 2024-04-13 12:59 | XMS_ITS | Encounter Summary ---
Author Organization [place] Address [address] [place] [address] Care Team Providers Care Tube Depatcher Name Role Phone Cayden Nunez MD Primary Care Provider [phone] Cayden Nunez MD Unavailable [phone] Tony Deal MD Unavailable Encounter Details Date Type Department Care Team (Late st Contact Info) Description 04/06/2023 MyC Medical Advice [facility] [address] [place] [phone] [place] [address] [place] [address] [phone] Social History Tobacco Use Types Packs/Day Years [...] st Contact Info) Description 04/13/2024 3:00 PM CURB ATTENDANT [facility] [address] [facility] [address] [place] [phone] Freddy Zuñ[place] [address] [place] [address] documented as of this encounter Visit Diagnoses Not on filedocumented in this encounter Additional Health Concerns Assessment Noted Time PHQ-9 Depression Total Score: 0 10/03/19 21 2:07 PM CDT documented as of this encounter Care Teams Tube Depatcher Relationship Specialty Start Date End Date Cayden Nunez MD [address]0 [place] [address] PCP - General 02/22/17 Cayden Nunez MD [address] [place] [address] Assigned PCP 11/21/20 Tony Deal MD [address] [place] [address] Assigned Neuroscience Provider 03/31/24 documented as of this encounter
--- OUTSIDE RECORDS SUMMARY | 2024-04-13 12:59 | XMS_ITS | Encounter Summary ---
Author Organization [place] Address [address] [place] [address] Care Team Providers Care Electronic Imaging System Operator Name Role Phone Cayden Nunez MD Primary Care Provider [phone] Cayden Nunez MD Unavailable [phone] Tony Deal MD Unavailable Encounter Details Date Type Department Care Team (Late st Contact Info) Description 12/26/2020 MyC Medical Advice [facility] [address] [place] [phone] Cayden Nunez MD [address] [place], [place] [phone] Social History Tobacco Use Types Packs/Day Years Used Date Smoking Tobacco: Never Smokeless Tobacco: Never Alcohol Use Standard Drinks/Week Comments Yes 8 (1 standard drink = 0.6 oz pur e alcohol) social PHQ-2 Answer Date Recorded PHQ-2 Score 0 09/11/2020 Sex and Gender Information Value Date Recorded Sex Assigned at Not on file Legal Sex Male 10:56 AM CDT Gender Identity Not on file Sexual Orientation Not on file documented as of this encounter Plan of Treatment Upcoming Encounters Date Type Department Care Team (Late st Contact Info) Description 04/13/2024 3:00 PM BUSINESS INTELLIGENCE ETL DEVELOPER Therapy Visit [facility] [address] [place] [phone] [place]uñ[place] [address] [place] [address] documented as of this encounter Visit Diagnoses Not on filedocumented in this encounter Additional Health Concerns Assessment Noted Time PHQ-9 Depression Total Score: 0 10/03/19 21 2:07 PM CDT documented as of this encounter Care Teams Electronic Imaging System Operator Relationship Specialty Start Date End Date Cayden Nunez MD [address] [place] [address] PCP - General 02/22/17 Cayden Nunez MD [address] [place] [address] Assigned PCP 11/21/20 Tony Deal MD [address] [place] [address] Assigned Neuroscience Provider 03/31/24 documented as of this encounter
--- OUTSIDE RECORDS SUMMARY | 2024-04-13 12:59 | XMS_ITS | Clinical Summary ---
Author Organization [facility] Address [place], [place] [address] Care Team Providers Care Behavior Clinician Name Role Phone Cayden Nunez MD Primary Care Provider [phone] Allergies Active Allergy Reactions Criticality Noted Date Comments Penicillins Anaphylaxis High 03/07/2014 shock Medications No known medications Social History Tobacco Use Types Packs/Day Years Used Date Smoking Tobacco: Never Smokeless Tobacco: Never Tobacco Cessation:Counseling Given: No Sex and Gender Information Value Date Recorded Sex Assigned at Not on file Gender Identity Not on file Sexual Orientation Not on file Obstetrics History Last Filed Vital Signs Vital Sign Reading Time Taken Comments Blood Pressure 143/92 01/25/2022 12:56 PM CDT Pulse 59 01/25/2022 12:56 PM CDT Temperature - - Respiratory Rate 16 01/25/2022 12:56 PM CDT Oxygen Saturation 99% 01/25/2022 12:56 PM CDT Inhaled Oxygen Concentration - - Weight - - Height - - Body Mass Index - - Plan of Treatment Health Maintenance Due Date Last Done Comments Tdap 1993 Depression screening for age 12+ 1994 HIV for age 15-65 1997 BMI (ht and wt on same day) for age 18+ 2000 Hepatitis C screening for ag e 18-79 2000 Tetanus booster 2002 Lipids for age 35-44 2017 COVID-19 vaccine series (2023- season) 2024 03/03/2021, 06/24/2020, 05/27/2020 Influenza for age 9-49 01/08/2024 Pneumococcal series for age 6-64 Aged Out No longer eligible b ased on patient's age to complete this topic Care Teams Behavior Clinician Relationship Specialty Start Date End Date Cayden Nunez MD [address]0 [place] [address] PCP - General Internal Medicine 01/25/22
--- OUTSIDE RECORDS SUMMARY | 2024-04-13 12:59 | XMS_ITS | Encounter Summary ---
Author Organization [place] Address [address] [place] [address] Care Team Providers Care Dry Press Operator Helper Name Role Phone Cayden Nunez MD Primary Care Provider [phone] Cayden Nunez MD Unavailable [phone] Tony Deal MD Unavailable Encounter Details Date Type Department Care Team (Late st Contact Info) Description 01/28/2023 [facility] Adv[facility] [address] [place] [phone] [place] [address] [place] [address] [phone] Social History Tobacco Use Types Packs/Day Years [...] on file Sexual Orientation Not on file COVID-19 Exposure Response Date Recorded In the last 10 days, have yo u been in contact with someone who was confirmed or suspected to have Coronavirus/COVID-19? No / Unsure 01/28/2023 8:51 AM CDT documented as of this encounter Plan of Treatment Upcoming Encounters Date Type Department Care Team (Late st Contact Info) Description 04/13/2024 3:00 PM MS ACCESS DATABASE DEVELOPER Therapy Visit [facility] [address] [facility] [address] [place] [phone] Freddy Zuñ[place] [address] [place] [address] documented as of this encounter Visit Diagnoses Not on filedocumented in this encounter Additional Health Concerns Assessment Noted Time PHQ-9 Depression Total Score: 0 10/03/19 21 2:07 PM CDT documented as of this encounter Care Teams Dry Press Operator Helper Relationship Specialty Start Date End Date Cayden Nunez MD [address] [place] [address] PCP - General 02/22/17 Cayden Nunez MD [address] [place] [address] Assigned PCP 11/21/20 Tony Deal MD [address] [place] [address] [address] [place] [address] Assigned Neuroscience Provider 03/31/24 documented as of this encounter
--- OUTSIDE RECORDS SUMMARY | 2024-04-13 12:59 | XMS_ITS | Encounter Summary ---
Author Organization [place] Address [address] [place] [address] Care Team Providers Care Telephone Lines Repairer Name Role Phone Cayden Nunez MD Primary Care Provider [phone] Cayden Nunez MD Unavailable [phone] Tony Deal MD Unavailable Encounter Details Date Type Department Care Team (Late st Contact Info) Description 01/04/2023 MyC Medical Advice [facility] [address] [place] [phone] [place] [address] [place] [address] [phone] Social History Tobacco Use Types Packs/Day Years Used Date Smoking Tobacco: Never Smokeless Tobacco: Never Alcohol Use Standard Drinks/Week Comments Yes 5 (1 standard drink = 0.6 oz pur e alcohol) social PHQ-2 Answer Date Recorded PHQ-2 Score 0 01/04/2023 Sex and Gender Information Value Date Recorded Sex Assigned at Not on file Legal Sex Male 10:56 AM CDT Gender Identity Not on file Sexual Orientation Not on file COVID-19 Exposure Response Date Recorded In the last 10 days, have yo u been in contact with someone who was confirmed or suspected to have Coronavirus/COVID-19? No / Unsure 01/05/2023 3:02 PM CDT documented as of this encounter Plan of Treatment Upcoming Encounters Date Type Department Care Team (Late st Contact Info) Description 04/13/2024 3:00 PM HANDBAG FRAMER Therapy Visit [facility] [address] [place] [address] Freddy Zuñ[place] [address] [place] [address] documented as of this encounter Visit Diagnoses Not on filedocumented in this encounter Additional Health Concerns Assessment Noted Time PHQ-9 Depression Total Score: 0 10/03/19 21 2:07 PM CDT documented as of this encounter Care Teams Telephone Lines Repairer Relationship Specialty Start Date End Date Cayden Nunez MD [address]0 [place] [address] PCP - General 02/22/17 Cayden Nunez MD [address] [place] [address] Assigned PCP 11/21/20 Tony Deal MD [address] [place] [address] Assigned Neuroscience Provider 03/31/24 documented as of this encounter
--- OUTSIDE RECORDS SUMMARY | 2024-04-13 12:59 | XMS_ITS | Encounter Summary ---
Author Organization [place] Address [address] [place] [address] Care Team Providers Care Supervisor Riprap Placing Name Role Phone Cayden Nunez MD Primary Care Provider [phone] Cayden Nunez MD Unavailable [phone] Tony Deal MD Unavailable Encounter Details Date Type Department Care Team (Late st Contact Info) Description 02/28/2023 [facility] [address] [place] [phone] [place] [address] [place] [address] [phone] Social History Tobacco Use Types Packs/Day Years [...] suspected to have Coronavirus/COVID-19? No / Unsure 02/09/2023 10:06 AM CDT documented as of this encounter Plan of Treatment Upcoming Encounters Date Type Department Care Team (Late st Contact Info) Description 04/13/2024 3:00 PM PRESS OPERATOR AUTOMATIC Therapy Visit [facility] [address] [facility] [address] [place] [phone] [place]dy Zuiñ[place] [address] [place] [address] documented as of this encounter Visit Diagnoses Not on filedocumented in this encounter Additional Health Concerns Assessment Noted Time PHQ-9 Depression Total Score: 0 10/03/19 21 2:07 PM CDT documented as of this encounter Care Teams Supervisor Riprap Placing Relationship Specialty Start Date End Date Cayden Nunez MD [address]0 [place] [address] PCP - General 02/22/17 Cayden Nunez MD [address] [place] [address] Assigned PCP 11/21/20 Tony Deal MD [address] [place] [address] [address] [place] [address] Assigned Neuroscience Provider 03/31/24 documented as of this encounter
== END 2024-04-13 13:32 | disposition home or self-care (01) ==
PROVIDERS: Emergency Provider Student in an Organized Health Care Education/Training Program
DX: R07.89 Other chest pain (principal); R42 Dizziness and giddiness
CPT/HCPCS: 36415; 71046; 80048; 83735; 84484; 85025; 87631; 93005; 99284; 99285